=== PATIENT | female | born 1970 | race Two or more races ===

== ENCOUNTER 2018-06-24 14:47 | Emergency (ER) | payer SELFPAY ==
[~2018-06-24] VITALS: Ht 165.1 cm; Wt 70.3 kg
[2018-06-24 14:47] VITALS: BP 127/76
--- NOTE | 2018-06-24 15:00 | NUR ---
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
[2018-06-24 15:23] LABS: BASOPHILS # (AUTO) 0.1 /CMM (0.0-0.2); BASOPHILS % (AUTO) 1.2 % (0.0-2.0); HEMATOCRIT 33 % (33-45); HEMOGLOBIN 10.2 g/dL (11.5-14.8); LYMPHOCYTES # (AUTO) 2.2 /CMM (0.8-4.8); LYMPHOCYTES % (AUTO) 27.5 % (20.0-44.0); MEAN CORPUSCULAR HGB CONC 31 g/dl (31.0-36.0); MEAN CORPUSCULAR VOLUME 74 fL (82-100); MONOCYTES # (AUTO) 0.6 /CMM (0.1-1.30); NEUTROPHILS # (AUTO) 4.9 /CMM (1.8-8.9); NEUTROPHILS % (AUTO) 62.3 % (43.0-81.0); PLATELET COUNT (AUTO) 733 /CMM (150-450); RDW COEFFICIENT OF VARIATION 17.1 (11.5-15.0); RED BLOOD CELL COUNT(AUTO) 4.41 MIL/uL (4.0-5.2); WHITE BLOOD COUNT (AUTO) 7.9 K/uL (4.3-11.0)
[2018-06-24 15:34] LABS: CALCIUM, SERUM 8.9 mg/dL (8.5-10.1); CREATININE 0.9 mg/dL (0.6-1.3); POTASSIUM 4.1 mmol/L (3.5-5.1)
[2018-06-24] MEDS ORDERED: IBUPROFEN 400 MG TABLET ONE (15:57)
[2018-06-24] MEDS: IBUPROFEN 400 MG TABLET PO ONE (15:58)
--- NOTE | 2018-06-24 16:15 | NUR ---
JUDY received a call from ED requesting for SW to assist pt. with homeless resources. Pt. is a 47 year old female who came to ED for body ache and feeling depressed. Prior to seeing the pt. JUDY consulted with polymerization oven operator Jose who evaluated pt. and stated pt. is no suicidal and need homeless resources. JUDY met with pt. bedside. Pt. is alert and oriented x 3 with a flat affect. Pt. states she has been homeless for the past 3 years. Pt. denies history of drug and or alcohol use abuse. Pt. is denying suicidal and homicidal ideations at this time. JUDY attempted to find alf for the pt. and contacted [facility] at and spoke to Ms. Keith who informed SW that pt. has "burned her bridges " and is restricted from coming to the alf. JUDY also contacted [facility] and was informed they have no beds available and to contact them tomorrow at 10AM. JUDY informed pt. regarding the alf limitations at this time. Pt. stated she will accept the homeless resources and will need some money for transportation. JUDY gave pt. list of homeless resources that included [facility] located [address] [address] JUDY gave [facility] $3 to give to pt. JUDY also gave pt. handout to mental health facilities including [facility]. JUDY updated DR. Hsu with pt's discharge plan.
[2018-06-24 16:27] LABS: EOSINOPHILS % (MANUAL) 4 % (0-4); LYMPHOCYTES % (MANUAL) 28 % (16-48); MONOCYTES % (MANUAL) 4 % (0-11.0); NEUTROPHILS % (MANUAL) 64 (42-76)
== END 2018-06-24 16:22 | disposition home or self-care (01) ==
LOC: ER 14:48
DX: M79.1 Myalgia (principal); F32.9 Major depressive disorder, single episode, unspecified; Z59.0 Homelessness
CPT/HCPCS: 36415; 80048-TC; 85025-TC; A4606; G0480; Z7610